=== PATIENT | female | born 1960 | race Caucasian/White ===

== ENCOUNTER 2019-07-03 14:20 | Emergency (ER) | payer MEDICAID ==
[~2019-07-03] VITALS: Ht 175.3 cm; Wt 108.4 kg
[~2019-07-03 14:20] MED LIST: ASPI-992 PO; ATEN50TA PO; B12 IM; DIAZ10TA PO; ERGO500014 PO; FOLI1TAB16 PO; GABA-534 PO; HYDR-4354 PO; IBUP-1957 PO; MECL-102 PO; NORT75CA PO; OMEG100T PO; PHEN16.234 PO; PROBIOTIC1 EACH PO; UBID100C13 PO
--- NOTE | 2019-07-03 14:38 | NUR ---
BIB RA 99 FROM HOME,C/O NAUSEA/VOMITING AND HEADACHE, BLOOD SUGAR 55 UPON EMS ARRIVAL AND BP ELEVATED. ON ROOM AIR, BREATHING EVENLY AND LABORED. CONNECTED TO THE MONITOR AND PULSE OX. WILL CONTINUE TO MONITOR ACCORDINGLY.
[2019-07-03] MEDS ORDERED: PROCHLORPERAZINE EDISYLATE 10 MG/2 ML VIAL ONE (14:56)
[2019-07-03] MEDS ORDERED: PROCHLORPERAZINE EDISYLATE 10 MG/2 ML VIAL IVP ONE ×2 (15:00)
[2019-07-03] MEDS ORDERED: DIAZEPAM 5 MG/ML 2 ML DISP.SYRIN IV ONE (15:00)
[2019-07-03] MEDS ORDERED: DIAZEPAM 5 MG TABLET PO ONE (15:00)
[2019-07-03 15:16] LABS: BASOPHILS # (AUTO) 0.2 /CMM (0.0-0.2); BASOPHILS % (AUTO) 1.8 % (0.0-2.0); EOSINOPHILS % (AUTO) 1.5 % (0.0-6.0); HEMATOCRIT 49 % (33-45); HEMOGLOBIN 16.3 g/dL (11.5-14.8); LYMPHOCYTES # (AUTO) 2.8 /CMM (0.8-4.8); MEAN CORPUSCULAR HGB CONC 33 g/dl (31.0-36.0); MEAN CORPUSCULAR VOLUME 88 fL (82-100); MONOCYTES # (AUTO) 0.7 /CMM (0.1-1.30); NEUTROPHILS % (AUTO) 64.7 % (43.0-81.0); PLATELET COUNT (AUTO) 423 /CMM (150-450); RED BLOOD CELL COUNT(AUTO) 5.56 MIL/uL (4.0-5.2); WHITE BLOOD COUNT (AUTO) 10.9 K/uL (4.3-11.0)
[2019-07-03] MEDS ORDERED: DIAZEPAM 5 MG TABLET ONE (15:26)
[2019-07-03 15:36] LABS: CALCIUM, SERUM 9.4 mg/dL (8.5-10.1); CREATININE 0.8 mg/dL (0.6-1.3)
--- NOTE | 2019-07-03 15:37 | NUR ---
URINE COLLECTED AND SENT TO LAB
[2019-07-03 15:42] LABS: ALBUMIN 3.8 g/dL (3.4-5.0); BILIRUBIN,DIRECT 0.1 mg/dL (0.0-0.2); BILIRUBIN,TOTAL 0.5 mg/dL (0.2-1.0); TOTAL PROTEIN, SERUM 8.7 g/dL (6.4-8.2)
[2019-07-03 15:44] LABS: APPEARANCE,URINE Clear (CLEAR); BILIRUBIN,URINE Negative (NEGATIVE); BLOOD, URINE Trace-intact Ery/uL (NEGATIVE); COLOR,URINE Yellow (YELLOW); KETONES,URINE Negative (NEGATIVE); LEUKOCYTE ESTERASE ,URINE Negative (NEGATIVE); NITRITE, URINE Negative (NEGATIVE); PROTEIN,URINE Negative (NEGATIVE); UGLUCOSE Negative (NEGATIVE); UROBILINOGEN,URINE 0.2 EU/dL (0.2)
[2019-07-03 15:49] LABS: BACTERIA,URINE Moderate /HPF (None Seen); SQUAMOUS EPITHELIAL CELL,UR Many /HPF (None Seen)
[2019-07-03 16:38] VITALS: BP 145/91
--- NOTE | 2019-07-03 16:39 | NUR ---
Patient discharged to home in stable condition. Written and verbal after care instructions given. Patient verbalizes understanding of instruction.IV removed. Catheter intact and site benign. Pressure and 4x4 applied to site. No bleeding noted.
== END 2019-07-03 16:39 | disposition home or self-care (01) ==
LOC: ER 14:25
DX: F41.9 Anxiety disorder, unspecified (principal); G89.4 Chronic pain syndrome; F32.9 Major depressive disorder, single episode, unspecified; I10 Essential (primary) hypertension; Z86.73 Personal history of transient ischemic attack (TIA), and cerebral infarction without residual deficits; Z90.89 Acquired absence of other organs; Z88.2 Allergy status to sulfonamides; Z88.6 Allergy status to analgesic agent; Z88.8 Allergy status to other drugs, medicaments and biological substances; Z79.82 Long term (current) use of aspirin; Z79.899 Other long term (current) drug therapy
CPT/HCPCS: 36415; 80048; 80076; 81001; 82962; 83690; 85025; 87086; 96374; 99284; J0780; 81000-TC

== ENCOUNTER 2021-08-20 14:11 | Inpatient (IN) | payer MEDICAID ==
[~2021-08-20] VITALS: Ht 175.3 cm; Wt 127.0 kg
[~2021-08-20 14:11] MED LIST changes: -MECL-102 PO; +MECL-159 PO
--- NOTE | 2021-08-20 14:30 | NUR ---
DR LAMBERT AT BEDSIDE
[2021-08-20] MEDS ORDERED: MECLIZINE HCL 25 MG TABLET ONE (14:47)
[2021-08-20] MEDS ORDERED: MECLIZINE HCL 25 MG TABLET PO ONE (15:00)
[2021-08-20 15:22] LABS: BASOPHILS % (AUTO) 0.5 % (0.0-2.0); EOSINOPHILS % (AUTO) 1.9 % (0.0-6.0); HEMATOCRIT 39 % (33-45); HEMOGLOBIN 13.6 g/dL (11.5-14.8); LYMPHOCYTES # (AUTO) 1.9 K/uL (0.8-4.8); LYMPHOCYTES % (AUTO) 33.2 % (20.0-44.0); MEAN CORPUSCULAR HGB CONC 34 g/dl (31.0-36.0); MEAN CORPUSCULAR VOLUME 89 fL (82-100); MONOCYTES # (AUTO) 0.6 K/uL (0.1-1.30); MONOCYTES % (AUTO) 9.7 % (2.0-12.0); NEUTROPHILS # (AUTO) 3.2 K/uL (1.8-8.9); NEUTROPHILS % (AUTO) 54.7 % (43.0-81.0); PLATELET COUNT (AUTO) 296 K/uL (150-450); RED BLOOD CELL COUNT(AUTO) 4.42 MIL/uL (4.0-5.2); WHITE BLOOD COUNT (AUTO) 5.8 K/uL (4.3-11.0)
[2021-08-20 15:32] LABS: CALCIUM, SERUM 8.8 mg/dL (8.5-10.1); CREATININE 0.8 mg/dL (0.6-1.3)
--- NOTE | 2021-08-20 16:12 | NUR ---
PATIENT COMFORTABLE IN BED. HOOKED TO MONITOR. KEPT SAFE AND WARM.
[2021-08-20] MEDS ORDERED: DOCU100C36 PO (16:25)
[2021-08-20] MEDS ORDERED: HYDR25TA4 PO (16:25)
[2021-08-20] MEDS ORDERED: AMIT150T PO (16:25)
[2021-08-20] MEDS ORDERED: BUSP5TAB3 PO (16:25)
--- NOTE | 2021-08-20 17:16 | NUR ---
Avery cameron in [facility] - 08/20/21 at 1727 by JOHNNY EPIC CALLED RICE FARMWORKER JENNIE.
--- NOTE | 2021-08-20 17:26 | NUR ---
DR. RODAS SPEAKING WITH ER
--- NOTE | 2021-08-20 17:55 | NUR ---
COVID SWAB DONE AND SENT
[2021-08-20] MEDS ORDERED: HYDROCODONE/APAP 10/325MG TABLET ONE (18:23)
[2021-08-20] MEDS ORDERED: HYDROCODONE/APAP 10/325MG TABLET PO ONE (18:30)
--- NOTE | 2021-08-20 19:03 | NUR ---
FOR MIDLINE INSERTION. MADE NURSING SUP AWARE
--- NOTE | 2021-08-20 19:03 | NUR ---
CALLED FOR MIDLINE.
--- NOTE | 2021-08-20 19:12 | NUR ---
ENDORSEMENT GIVEN TO VERÓNICA HEWITT FOR TYRA
--- NOTE | 2021-08-20 19:45 | NUR ---
MS HEWITT OPENING NOTES RECEIVED PATIENT LAYING AWAKE IN BED. A/O X4. PATIENT WITH REGULAR AND UNLABORED BREATHING ON 3LPM VIA NASAL CANULA, TOLERATED WELL. NO SIGNS AND SYMPTOMS OF DISTRESS NOTED. NO COMPLAIN OF PAIN OR DISCOMFORT NOTED AT THIS TIME. IV ACCESS TE MIDLINE SL. SAFETY PRECAUTIONS ENFORCED WITH BED LOCKED AND AT LOWEST POSITION. SIDERAILS UP. CALL LIGHT WITHIN REACH AT ALL TIMES WILL CONTINUE TO MONITOR PATIENT. Addendum: 08/21/21 at 1448 by TERENCE PAEZ RN DISREGARD NOTE INCORRECT DATE.
[2021-08-20] MEDS ORDERED: DIAZ10TA PO (21:52)
[2021-08-20] MEDS ORDERED: ATENOLOL 50 MG TABLET PO SCH (22:00)
--- NOTE | 2021-08-20 22:10 | NUR ---
MIDLINE RN AT BEDSIDE
--- NOTE | 2021-08-20 22:15 | NUR ---
RECIEVED BED 304-2
--- NOTE | 2021-08-20 22:39 | NUR ---
GAVE REPORT TO MARCELINA LOAIZA FOR TYRA
[2021-08-20 23:45] VITALS: BP 137/75
[2021-08-20] MEDS ORDERED: IBUPROFEN 800 MG TABLET PO SCH (23:58)
[2021-08-21] MEDS: MECLIZINE HCL 25 MG TABLET PO SCH ×6 (00:28→21:52)
[2021-08-21] MEDS: HYDROCODONE/APAP 10/325MG TABLET PO PRN ×2 (00:29→06:14)
--- NOTE | 2021-08-21 02:49 | NUR ---
ASSEMBLER SURGICAL GARMENT ADMITTING NOTES: RECEIVED PATIENT FROM ER VIA RNEY AWAKE, ON O2 INHALATION AT 3LPM SATURATING WELL, NO SOB WAS OBSERVED, TRANSFER TO ROOM SKIN ASSESSMENT DONE NO SKIN ISSUES HAS BEEN OBSERVED, INVENTORY DONE AND DOCUMENTED, PATIENT IS ON TELEMONITORING, SR-85, PLACED IN BED COMFORTABLY, DUE MEDICATIONS GIVEN, ORIENTED TO PLACE REMINDED RESIDENT TO USE CALL LIGHTS WHEN NEEDED ASSISTANCE, PATIENT WITH TE MID LINE SL KEPT CLEAN AND DRY ALL NEEDS MET, WILL CONTINUE TO MONITOR.
--- NOTE | 2021-08-21 07:41 | NUR ---
MANAGER ASSURANCE CLOSING NOTES: PATIENT SLEEP IN BED COMFORTABLY, BED IN LOW POSITION, CALL LIGHTS WITHIN REACH, NO COMPLAIN OF PAIN AND DISCOMFORT AT THIS TIME, PATIENT IS/ A/O X4 BED REST OR ON BEDSIDE COMMODE, WITH TE MIDLINE SL, PATIENT ON O2 INHALATION AT 3LPM SATURATING WELL,PATIENT ON TELE MONITORING PATIENT KEPT CLEAN AND DRY, ALL NEEDS MET, ENDORSE TO INCOMING SHIFT
--- NOTE | 2021-08-21 07:53 | NUR ---
CANDY MIXER OPENING NOTE Patient in bed, awake. A/O x 4, able to make needs known. On O2 at 3 LPM via NC, breathing evenly and unlabored. No SOB or s/s of distress noted. IV access on TE midline, SL, intact and patent. On tele monitoring showing SR, HR at 74. Safety precautions in place: bed in low,locked position; siderails up x 2; call light within reach. Will continue to monitor.
[2021-08-21 08:00] VITALS: BP 127/72
[2021-08-21] MEDS ORDERED: HYDROCODONE/APAP 5/325MG TABLET PO PRN ×2 (08:00)
[2021-08-21] MEDS: busPIRone 5 MG TABLET PO SCH ×4 (08:44→17:00)
[2021-08-21] MEDS: DOCUSATE SODIUM 100 MG CAPSULE PO SCH ×2 (08:45→17:11)
[2021-08-21] MEDS: LACTOBACILLUS RHAMNOSUS GG 1 EACH CAP.SPRINK PO SCH (08:45)
[2021-08-21] MEDS: HYDROCHLOROTHIAZIDE 25 MG TABLET PO SCH (08:46)
[2021-08-21] MEDS ORDERED: FATTY ACIDS PO SCH (09:00)
[2021-08-21] MEDS ORDERED: DIAZEPAM 5 MG TABLET PO SCH (09:00)
[2021-08-21] MEDS ORDERED: OMEGA PO SCH (09:00)
[2021-08-21] MEDS: AMITRIPTYLINE HCL 25 MG TABLET PO SCH ×2 (09:00→09:41)
--- NOTE | 2021-08-21 11:00 | NUR ---
Patient taking [place] 10/325 2 tablets BID and [place] 10/325 1 tablet as needed every 6 hours at [facility], Dr. Alvarado ordered to continue meds while in-patient.
[2021-08-21] MEDS: ENOXAPARIN SODIUM 40 MG/0.4 ML DISP.SYRIN SQ SCH ×2 (11:30→12:19)
[2021-08-21 11:55] LABS: BASOPHILS % (AUTO) 0.5 % (0.0-2.0); EOSINOPHILS % (AUTO) 3.2 % (0.0-6.0); HEMATOCRIT 37 % (33-45); HEMOGLOBIN 12.7 g/dL (11.5-14.8); LYMPHOCYTES # (AUTO) 2.3 K/uL (0.8-4.8); LYMPHOCYTES % (AUTO) 39.7 % (20.0-44.0); MEAN CORPUSCULAR HGB CONC 34 g/dl (31.0-36.0); MEAN CORPUSCULAR VOLUME 90 fL (82-100); MONOCYTES # (AUTO) 0.6 K/uL (0.1-1.30); MONOCYTES % (AUTO) 10.1 % (2.0-12.0); NEUTROPHILS # (AUTO) 2.7 K/uL (1.8-8.9); NEUTROPHILS % (AUTO) 46.5 % (43.0-81.0); PLATELET COUNT (AUTO) 269 K/uL (150-450); RED BLOOD CELL COUNT(AUTO) 4.09 MIL/uL (4.0-5.2); WHITE BLOOD COUNT (AUTO) 5.8 K/uL (4.3-11.0)
[2021-08-21] MEDS ORDERED: FOLIC ACID 1 MG TABLET PO SCH (12:00)
[2021-08-21] MEDS ORDERED: ASPIRIN 81 MG TAB.CHEW PO SCH ×2 (12:00→17:00)
[2021-08-21 12:05] LABS: CALCIUM, SERUM 8.4 mg/dL (8.5-10.1); MAGNESIUM 2.2 mg/dL (1.8-2.4); POTASSIUM 3.9 mmol/L (3.5-5.1)
[2021-08-21] MEDS: ATENOLOL 50 MG TABLET PO SCH ×2 (12:59→17:12)
[2021-08-21] MEDS: ASPIRIN 81 MG TAB.CHEW PO SCH ×2 (13:00→17:11)
[2021-08-21] MEDS: HYDROCODONE/APAP 10/325MG TABLET PO SCH ×2 (13:00→17:12)
[2021-08-21 16:00] VITALS: BP 124/73
[2021-08-21] MEDS ORDERED: DIAZEPAM 10 MG TABLET PO SCH (18:00)
--- NOTE | 2021-08-21 19:33 | NUR ---
MS RN CLOSING NOTE Patient in bed, awake. A/O x 4, able to make needs known. On O2 at 3 LPM via NC, breathing evenly and unlabored. No SOB or s/s of distress noted. IV access on TE midline, SL, intact, patent flushes well. All needs attended to. Due meds given. Safety precautions maintained: bed in low,locked position; siderails up x 2; call light within reach. Will endorse to new car driver nurse for TYRA.
--- NOTE | 2021-08-21 19:45 | NUR ---
MS RN OPENING NOTES RECEIVED PATIENT LAYING AWAKE IN BED. A/O X4. PATIENT WITH REGULAR AND UNLABORED BREATHING ON 3LPM VIA NASAL CANULA, TOLERATED WELL. NO SIGNS AND SYMPTOMS OF DISTRESS NOTED. NO COMPLAIN OF PAIN OR DISCOMFORT NOTED AT THIS TIME. IV ACCESS TE MIDLINE SL. SAFETY PRECAUTIONS ENFORCED WITH BED LOCKED AND AT LOWEST POSITION. SIDERAILS UP. CALL LIGHT WITHIN REACH AT ALL TIMES WILL CONTINUE TO MONITOR PATIENT.
[2021-08-21 20:00] VITALS: BP 113/77
[2021-08-21] MEDS ORDERED: AMITRIPTYLINE HCL 25 MG TABLET PO SCH (22:00)
[2021-08-22] MEDS: AMITRIPTYLINE HCL 25 MG TABLET PO SCH ×2 (00:53→21:18)
[2021-08-22] MEDS: MECLIZINE HCL 25 MG TABLET PO SCH ×3 (06:10→20:02)
--- NOTE | 2021-08-22 07:06 | NUR ---
MS RN CLOSING NOTES RECEIVED PATIENT LAYING AWAKE IN BED. A/O X4. PATIENT WITH REGULAR AND UNLABORED BREATHING ON 3LPM VIA NASAL CANULA, TOLERATED WELL. NO SIGNS AND SYMPTOMS OF DISTRESS NOTED. NO COMPLAIN OF PAIN OR DISCOMFORT NOTED AT THIS TIME. IV ACCESS TE MIDLINE SL. SAFETY PRECAUTIONS ENFORCED WITH BED LOCKED AND AT LOWEST POSITION. SIDERAILS UP. CALL LIGHT WITHIN REACH AT ALL TIMES WILL ENDORSE CONTINUITY OF CARE TO DAY SHIFT NURSE.
--- NOTE | 2021-08-22 07:20 | NUR ---
MS RN OPENING NOTES RECEIVED PATIENT LAYING AWAKE IN BED. A/O X4. PATIENT WITH REGULAR AND UNLABORED BREATHING ON 3LPM VIA NASAL CANULA, TOLERATED WELL. NO SIGNS AND SYMPTOMS OF DISTRESS NOTED. NO COMPLAIN OF PAIN OR DISCOMFORT NOTED AT THIS TIME. IV ACCESS TE MIDLINE SL, PATENT AND INTACT. SAFETY PRECAUTIONS ENFORCED WITH BED LOCKED AND AT LOWEST POSITION. SIDERAILS UP. CALL LIGHT WITHIN REACH AT ALL TIMES WILL CONTINUE TO MONITOR
[2021-08-22 08:00] VITALS: BP 98/64
[2021-08-22] MEDS: ENOXAPARIN SODIUM 40 MG/0.4 ML DISP.SYRIN SQ SCH (08:20)
[2021-08-22] MEDS: busPIRone 5 MG TABLET PO SCH ×3 (08:20→16:02)
[2021-08-22] MEDS: HYDROCODONE/APAP 10/325MG TABLET PO SCH ×2 (08:32→16:20)
[2021-08-22] MEDS: ASPIRIN 81 MG TAB.CHEW PO SCH ×2 (08:32→20:02)
[2021-08-22] MEDS: DOCUSATE SODIUM 100 MG CAPSULE PO SCH ×2 (08:32→20:02)
[2021-08-22] MEDS: HYDROCHLOROTHIAZIDE 25 MG TABLET PO SCH (08:33)
[2021-08-22] MEDS: FOLIC ACID 1 MG TABLET PO SCH (08:33)
[2021-08-22] MEDS: LACTOBACILLUS RHAMNOSUS GG 1 EACH CAP.SPRINK PO SCH (08:33)
[2021-08-22] MEDS ORDERED: ERGOCALCIFEROL (VITAMIN D 2) 50,000 UNIT CAPSULE PO SCH (09:00)
--- NOTE | 2021-08-22 09:06 | NUR ---
RN NOTE PATIENT COMPLAINING OF DIZZINESS AND NAUSEA, GAVE NEW ORDER MECLIZINE AND ZOFRAN PRN, WILL CONTINUE TO MONITOR
[2021-08-22] MEDS: MECLIZINE HCL 12.5 MG TABLET PO PRN (09:23)
[2021-08-22] MEDS ORDERED: ONDANSETRON HCL/PF 4 MG/2 ML VIAL IV PRN (09:30)
[2021-08-22 11:59] LABS: BASOPHILS % (AUTO) 0.4 % (0.0-2.0); EOSINOPHILS % (AUTO) 3.5 % (0.0-6.0); HEMATOCRIT 38 % (33-45); HEMOGLOBIN 12.6 g/dL (11.5-14.8); MEAN CORPUSCULAR HGB CONC 34 g/dl (31.0-36.0); MEAN CORPUSCULAR VOLUME 91 fL (82-100); MONOCYTES # (AUTO) 0.5 K/uL (0.1-1.30); MONOCYTES % (AUTO) 9.3 % (2.0-12.0); NEUTROPHILS # (AUTO) 3.1 K/uL (1.8-8.9); NEUTROPHILS % (AUTO) 52.8 % (43.0-81.0); PLATELET COUNT (AUTO) 285 K/uL (150-450); RED BLOOD CELL COUNT(AUTO) 4.14 MIL/uL (4.0-5.2); WHITE BLOOD COUNT (AUTO) 5.8 K/uL (4.3-11.0)
[2021-08-22 12:50] LABS: CALCIUM, SERUM 8.3 mg/dL (8.5-10.1); CREATININE 0.9 mg/dL (0.6-1.3); POTASSIUM 3.9 mmol/L (3.5-5.1)
[2021-08-22] MEDS: DIAZEPAM 10 MG TABLET PO PRN ×2 (14:08→21:18)
[2021-08-22 16:00] VITALS: BP 132/79
--- NOTE | 2021-08-22 18:19 | NUR ---
MS RN CLOSING NOTES PATIENT LAYING AWAKE IN BED. A/O X4. PATIENT WITH REGULAR AND UNLABORED BREATHING ON 3LPM VIA NASAL CANULA, TOLERATED WELL. NO SIGNS AND SYMPTOMS OF DISTRESS NOTED. NO COMPLAIN OF PAIN OR DISCOMFORT NOTED AT THIS TIME. IV ACCESS TE MIDLINE SL, PATENT AND INTACT. ALL MEDICATIONS GIVEN ORDERED. PAIN AND VERTIGO TREATED NEEDED. SAFETY PRECAUTIONS ENFORCED WITH BED LOCKED AND AT LOWEST POSITION. SIDERAILS UP. CALL LIGHT WITHIN REACH AT ALL TIMES WILL ENDORSE TO ONCOMING SHIFT
[2021-08-22 20:00] VITALS: BP 119/70
[2021-08-22] MEDS: HYDROCODONE/APAP 10/325MG TABLET PO PRN (20:02)
[2021-08-23] MEDS: MECLIZINE HCL 25 MG TABLET PO SCH ×3 (04:22→20:52)
--- NOTE | 2021-08-23 07:30 | NUR ---
PT RECEIVED RESTING COMFORTABLY IN BED. NO S/S OR C/O PAIN OR DISTRESS NOTED. SIDE RAILS UP X2, CALL LIGHT LEFT WITHIN REACH. WILL CONTINUE PLAN OF CARE
[2021-08-23 08:28] VITALS: BP 112/74
[2021-08-23] MEDS: busPIRone 5 MG TABLET PO SCH ×3 (09:00→16:18)
[2021-08-23] MEDS: ENOXAPARIN SODIUM 40 MG/0.4 ML DISP.SYRIN SQ SCH (09:00)
[2021-08-23] MEDS: HYDROCHLOROTHIAZIDE 25 MG TABLET PO SCH (09:03)
[2021-08-23] MEDS: LACTOBACILLUS RHAMNOSUS GG 1 EACH CAP.SPRINK PO SCH (09:04)
[2021-08-23] MEDS: HYDROCODONE/APAP 10/325MG TABLET PO SCH ×2 (09:04→16:18)
[2021-08-23] MEDS: FOLIC ACID 1 MG TABLET PO SCH (09:04)
[2021-08-23] MEDS: CHOLECALCIFEROL 1,000 UNIT TABLET (VIT D3) PO SCH (09:05)
[2021-08-23] MEDS: ATENOLOL 50 MG TABLET PO SCH ×2 (09:05→20:55)
[2021-08-23] MEDS: MECLIZINE HCL 12.5 MG TABLET PO PRN (09:13)
[2021-08-23] MEDS: DIAZEPAM 10 MG TABLET PO PRN ×3 (09:13→22:26)
[2021-08-23] MEDS: ASPIRIN 81 MG TAB.CHEW PO SCH ×2 (09:15→20:52)
[2021-08-23] MEDS: DOCUSATE SODIUM 100 MG CAPSULE PO SCH ×2 (09:15→20:52)
[2021-08-23] MEDS ORDERED: ONDA4TAB5 PO (10:01)
[2021-08-23] MEDS ORDERED: MECL-159 PO (10:01)
[2021-08-23] MEDS: HYDROCODONE/APAP 10/325MG TABLET PO PRN ×2 (13:15→20:57)
--- NOTE | 2021-08-23 14:49 | NUR ---
SS Consult: SS consult for discharge planning. Pt. Is a 61-year-old female. Pt. demonstrates adequate insight to the reason for hospitalization. Per pt., she was brought to hospital by ambulance. Pt. was oriented x4, alert, and cooperative. During interview, pt. was capable of following directions, made appropriate eye-contact, but pt. was complaining that something is wrong with her eyesight. Pt. appeared well-groomed. Pt.s speech was at a normal rate. SW explored pt.s Hx of mental health and substance abuse. Pt. reported no Hx of mental health, substance abuse, suicidal or homicidal. Pt. denies auditory hallucinations, visual hallucinations, paranoia, or delusions. SW explored pt.s living situation. Per pt., she lives alone [[address] [place] [address]]. Per pt., she is currently on palliative care. Pt. mentioned that a nurse comes once a week, and pt. has caregiver that comes everyday for a few hours. Per pt., she reports having adequate support from her son Rico [contact information not provided]. Plan: SW provided available senior resources and pt. accepted. Per EMR, pt. will be transferred to SNF for rehab. Resources Provided: ABUSE PREVENTION: ELDER ABUSE HOTLINE (03/04) ADULT PROTECTIVE SERVICES HOTLINE LONG-TERM CARE [facility] Region AREA ON AGING (HOTLINE) ADULT DAY HEALTH CARE CARE CENTERS: Private pay or [facility] funded adult day care [facility] [place] [facility] , [facility] Services , [facility] Center , [facility] Adult [facility] Care , [facility] Adult Day Health Care , [facility] Adult Daycare Center , [facility] , [facility] Adult [facility] , [facility] [place] ALZHEIMERS DISEASE/DEMENTIA: Alzheimers Association Helpline [facility] Chapter www.alz.org/[facility] Department of Aging www.lacity.org Family Caregiver [place] www.caregiver.org [place] Caregiver Resources Center/Family Support www.[facility].org CANCER RESOURCES: [place] Cancer Society www.cancer.org Cancer Support Community www.CancerSupportVvsb.org: CancerCare www.cancercare.org [facility] Cancer Support Balm www.[facility].org [facility] HEALTH ASSOCIATIONS: AARP www.aarp.org ALS Association (ask for Becca) www.als.org [place] Diabetes Association www.diabetes.org [place] Heart Association www.heart.org [place] Lung Association www.lungusa.org [place] Parkinson Disease Association www.apdaparkinson.org Eritrean Bond , www.redcross.org Arthritis Foundation www.arthritis.org Crohns & Colitis Foundation of [place]an www.ccfa.org/chapters/julio National Multiple Sclerosis Society www.nationalmssociety.org Myasthenia Gravis Foundation www.myasthenia-ca.org National Stroke Association www.stroke.org CONSERVATORSHIP & GUARDIANSHIP: AARP Kristy Mckeon Legal Services Center for Health Care Rights Eld[facility]are Information and Referral Golf Course Designer [facility]: [facility] Bar Referral Service [facility] Neighborhood Legal Services Office of the Public Guardian Mchenry EYESIGHT DISORDER RESOURCES: [place] Macular Degeneration Foundation [facility] www.[facility].org GRIEF AND BEREAVEMENT RESOURCES: The [place] [facility] , [facility] THE HOPE Connection , [facility] Bereavement Center , [place]an HEARING DISORDER RESOURCES: [place] Telephone Access Program Deaf and Disabled Telecommunications Program www.ddtp.college hospital.ca.gov HearRx Hearing Centers ([place]) Better Hearing Systems , [place] GLAD ([facility] Agency on Deafness) V/ TTY; Stranding Machine Operator Helper , [facility] Hearing [facility] -low income hearing aid assistance www.BUSINESS OWNERS ADVANTAGEpromedica flower hospitalringfoundation.org [facility] [facility] , Grupo HELP AT HOME CAREGIVER SUPPORT: In Home Support Services (Must have Medi-Linus to be eligible) *Ask for a list of agencies that provide services to assist with care in the home. Local Senior Centers also have listings of care providers. HOME SAFETY MODIFICATIONS AND EQUIPMENT: Senior centers have additional referrals. [place] Housing and Community Investment Dept. Handyworker Program (low income) or Visit http://hcidla.lacity.org/kvn-grgmgx-sq for more information National Seating and Mobility and/or ; Forever Active www.foreveractivemed.com Stay Home Safe www.Stayhomesafe.com LIFE ALERT RESPONSE SYSTEM: Invisible Puppy Services 584-432-8003 www. [place].Micromax Informatics Life Alert 807-061-1944 www.Welspun [employer].Micromax Informatics Life Station 402-013-3196 www.RAMp Sports.Micromax Informatics Safe Return [phone] www.alz.or/safereturn Cell Phones for Seniors www.Neofonie MEALS AND FOOD PROGRAMS: [place] Meals on Wheels [phone] [place] Meals on Wheels [phone] [facility] [phone] [place] to the Homebound [phone] [place] to the Homebound [phone] [facility] Center to the Homebound [phone] [facility] to the Homebound [phone] [facility] For Women[facility]nor [phone] [facility] [phone] ONE Generation [phone] [facility] [phone] [facility] [phone] Meals on Wheels [phone] For all ages: $6.85/ meal w side. Delivered M-F from 10 am-1pm. Application and payment is done over the phone. Frozen meals available for weekends. Emergency Food Coaltuba city regional [facility] corporation [phone] [facility] Search Engine Optimization Strategist [phone] [facility] [phone] [facility]- Brown bag lunches [phone] [facility] [phone] MEAL/GROCERY DELIVERY PROGRAMS: [facility] Gourmet Meals [phone]- [facility] [phone] [facility] Magic Kitchen [phone] Moms Meals [phone] (ask Banks for Discount Select grocery stores may provide delivery. MEDICAL INSURANCE SUPPORT SERVICES: Center for Health Care Rights [phone] Health Insurance Counseling/Advocacy Programs (HICAP)-Must have Medicare. Offers counseling for Medi-Linus eligibility [phone] Department of Public Search Engine Optimization Strategist [phone] www.[facility].ca.gov Medicare 327-332-3022 www.socialsecurity.org Social Security [phone] SENIOR ACTIVITY PROGRAMS: *Contact a local senior center, adult school, recreation facility or community [facility] for education, fitness, recreation, and social programs. Aquatic Therapy and Adapted Exercise programs through [facility] [phone] Encore at [facility] [phone] www.[facility]/encore H2U- Senior Friends [phone] [place] Senior Programs [phone] www.oasisnet.org Suddenly 65 www.ocqgjynx15.com SENIOR CENTERS: [facility] [phone] [facility] [phone] [facility] [phone] [facility] [phone] [facility] [phone] [facility] [phone] [facility] [phone] [facility] [phone] One [facility] [phone] [facility] [phone] [facility] [phone] [facility] [phone] [facility] [phone] TRANSPORTATION: Local [facility] may have applications for transportation programs and additional resources. ACCESS Services [phone] Transportation for seniors and disabled persons 7 days a week requiring 254 hr. advance reservation. Must apply and register for program joy eligible. [employer] RIDE [phone] or [phone] Transportation for seniors and persons with ADA card/metro disabled card in the [facility]. M-F only. Must register for services. ONE GENERATION [phone] Serves 65 years + in conjunction with city ride program. Must be registered with both programs. A to B Transport [phone] Provides wheelchair/gurney van service. Adult Medical Transport [phone] Accepts [facility] with prior authorization. Care Van [phone] Provides wheelchair Transport. [facility] Wide Transportation [phone] Provides gurney service [facility] Care [phone] Gurney Transport. All Town Transportation [phone] wheelchair & gurney transport D Transportation [phone] wheelchair & gurney transport [place] Non-Emergency Transport [phone] wheelchair & gurney transport [facility] Living Balm [phone] Short Term Transportation primarily for adults with disabilities on social security income. Nominal fee may apply and a reservation is required. [facility] [phone] or [phone] [facility] [phone] [place] [address] Referral Services -[phone] For additional programs & services VETERANS RESOURCES: Submissions for Aid and Attendance should be done directly to Federal VA office locatd at : [address] [phone] National Caregiver Support Line [phone] [facility] Veterans Services Field Office [phone] [place] Department of [place] Affairs [phone] Pension Information [phone]
[2021-08-23 15:55] VITALS: BP 103/76
--- NOTE | 2021-08-23 19:39 | NUR ---
CHANGE OF SHIFT REPORT PATIENT RESTING COMFORTABLY IN BED. NO S/S OR C/O PAIN OR DISTRESS NOTED. SIDE RAILS UP X2, CALL LIGHT LEFT WITHIN REACH. PT KEPT CLEAN, DRY, AND COMFORTABLE. NO SIGNIFICANT CHANGES SINCE PREVIOUS SHIFT. REPORT GIVEN TO BERNA HEWITT.
--- NOTE | 2021-08-23 19:45 | NUR ---
MS RN NOTE RECEIVED PATIENT IN BED. A/OX4. NO S/S OF APPARENT DISTRESS ON 3LPM OF O2 VIA NC. PATIENT ABLE TO MAKE NEEDS KNOWN. NO FLUIDS RUNNING AT THIS TIME. BLE EDEMA NON-PITTING NOTED. SAFETY IN PLACE. NEEDS ATTENDED AT THE MOMENT. WILL CONTINUE WITH PLAN OF CARE FOR PATIENT.
[2021-08-23 20:00] VITALS: BP_SYST 113; BP_SYST 132; BP_DIAS 67; BP_DIAS 68
--- NOTE | 2021-08-23 20:47 | NUR ---
MS RN NOTE PATIENT ASKED FOR COPIES OF HER IMAGING REPORTS AND LAB RESULTS COREY. PRINTED IT OUT FOR PATIENT AND GAVE HER COPY.
[2021-08-23] MEDS: AMITRIPTYLINE HCL 25 MG TABLET PO SCH (22:03)
[2021-08-24] MEDS: MECLIZINE HCL 25 MG TABLET PO SCH ×2 (05:43→12:22)
--- NOTE | 2021-08-24 07:00 | NUR ---
Received patient AO x 4, able to responds all stimuli. Patient does no c/o pain or discomfort at this time. Respiratory even and unlabored with oxygen at 3L. Skin is warm to touch, keep clean/dry. Call light within reach, keep lower bed position and elevated HOB, will continue to monitor.
[2021-08-24 08:00] VITALS: BP 122/74
[2021-08-24] MEDS: ENOXAPARIN SODIUM 40 MG/0.4 ML DISP.SYRIN SQ SCH ×2 (09:00→09:20)
[2021-08-24] MEDS: busPIRone 5 MG TABLET PO SCH ×3 (09:00→13:00)
[2021-08-24] MEDS: HYDROCODONE/APAP 10/325MG TABLET PO SCH (09:18)
[2021-08-24] MEDS: DOCUSATE SODIUM 100 MG CAPSULE PO SCH (09:18)
[2021-08-24] MEDS: ASPIRIN 81 MG TAB.CHEW PO SCH (09:19)
[2021-08-24] MEDS: ATENOLOL 50 MG TABLET PO SCH (09:19)
[2021-08-24] MEDS: FOLIC ACID 1 MG TABLET PO SCH (09:19)
[2021-08-24] MEDS: CHOLECALCIFEROL 1,000 UNIT TABLET (VIT D3) PO SCH (09:19)
[2021-08-24] MEDS: LACTOBACILLUS RHAMNOSUS GG 1 EACH CAP.SPRINK PO SCH (09:19)
[2021-08-24] MEDS: HYDROCHLOROTHIAZIDE 25 MG TABLET PO SCH (09:30)
[2021-08-24] MEDS: DIAZEPAM 10 MG TABLET PO PRN (10:10)
--- NOTE | 2021-08-24 10:30 | NUR ---
Patient denies lower legs pain, except moving or activities. Addendum: 08/24/21 at 1301 by CELESTINA WEST RN Error
[2021-08-24] MEDS ORDERED: LIDOCAINE 5% (PATCH) 1 EA PATCH TP SCH (11:00)
[2021-08-24 16:00] VITALS: BP 119/76
--- NOTE | 2021-08-24 17:36 | NUR ---
Patient d/c to home, given discharge instruction include new medications/side effect. In sable condition, refused on wheel chair to the private car.
== END 2021-08-24 17:37 | disposition hospice, home (50) | DRG 111 ==
LOC: ER 14:14 → MED 22:49 → TELE 23:30 → MED 08-21 11:25
PROVIDERS: ADMIT Internal Medicine; ATTEND Internal Medicine
PROC: 05HB33Z Insertion of Infusion Device into Right Basilic Vein, Percutaneous Approach (ICD-10-PCS; principal; 2021-08-20)
DX: H81.09 Meniere's disease, unspecified ear (principal); F32.A Depression, unspecified; F41.9 Anxiety disorder, unspecified; G89.4 Chronic pain syndrome; M19.90 Unspecified osteoarthritis, unspecified site; Z86.73 Personal history of transient ischemic attack (TIA), and cerebral infarction without residual deficits; Z20.822 Contact with and (suspected) exposure to COVID-19; I10 Essential (primary) hypertension; M06.9 Rheumatoid arthritis, unspecified; M79.7 Fibromyalgia; Z90.49 Acquired absence of other specified parts of digestive tract; Z98.890 Other specified postprocedural states; Z88.2 Allergy status to sulfonamides; Z88.8 Allergy status to other drugs, medicaments and biological substances; Z91.041 Radiographic dye allergy status; Z79.899 Other long term (current) drug therapy; Z79.82 Long term (current) use of aspirin; S29.012A Strain of muscle and tendon of back wall of thorax, initial encounter; S16.1XXA Strain of muscle, fascia and tendon at neck level, initial encounter; X58.XXXA Exposure to other specified factors, initial encounter; Y92.9 Unspecified place or not applicable; H91.91 Unspecified hearing loss, right ear
CPT/HCPCS: 36415; 70450-TC; 72040-TC; 80048-TC; 83735-TC; 85025-TC; 87081-TC; 97112-TC; 97116-TC; 97530-TC; C9803; G0378; J1650; J8597

== ENCOUNTER 2025-08-08 19:50 | Emergency (ER) | payer MEDICAID ==
[~2025-08-08] VITALS: Ht 175.3 cm; Wt 124.7 kg
[~2025-08-08 19:50] MED LIST changes: +AMIT150T PO; -ASPI-992 PO; +BUSP5TAB3 PO; +DOCU100C36 PO; -GABA-534 PO; +HYDR25TA4 PO; -NORT75CA PO; +ONDA4TAB5 PO; -PHEN16.234 PO
[2025-08-08 21:06] LABS: PLATELET COUNT (AUTO) 337 K/uL (150-450); RED BLOOD CELL COUNT(AUTO) 4.23 MIL/uL (4.0-5.2); RED CELL DISTRIBUTION WIDTH 14.4 % (11.5-15.0); WHITE BLOOD COUNT (AUTO) 6.1 K/uL (4.3-11.0)
[2025-08-08] MEDS: IV NS 0.9% 500 ML BAG IV ONE (21:20)
[2025-08-08 21:26] LABS: CALCIUM, SERUM 9.0 mg/dL (8.5-10.1); CREATININE 0.7 mg/dL (0.6-1.3); SODIUM SERUM 136.0 mmol/L (136-145); UREA NITROGEN, BLOOD 15.0 mg/dL (7-18)
[2025-08-08 22:33] VITALS: TEMP 98.2
[2025-08-09 02:00] VITALS: BP 147/98; O2SAT 99
== END 2025-08-09 03:31 | disposition short-term general hospital (02) ==
LOC: ER 19:57
DX: R53.1 Weakness (principal); I10 Essential (primary) hypertension; Z88.2 Allergy status to sulfonamides; Z88.8 Allergy status to other drugs, medicaments and biological substances; Z90.49 Acquired absence of other specified parts of digestive tract; Z90.89 Acquired absence of other organs; Z91.041 Radiographic dye allergy status; Z86.73 Personal history of transient ischemic attack (TIA), and cerebral infarction without residual deficits; Z79.899 Other long term (current) drug therapy; Z60.2 Problems related to living alone
CPT/HCPCS: 99285; 71045; 93005; 85025; 80048; 36415; J7040